=== PATIENT | female | born 1955 | race Caucasian/White ===

== ENCOUNTER 2020-03-11 09:46 | Outpatient (CLI) | payer BC, SELFPAY ==
--- NOTE | ~2020-03-11 | MM_ITS ---
EXAMINATION: MM screening [facility] BI w [facility] HISTORY: Screening mammogram TECHNIQUE: Craniocaudal and mediolateral oblique 3-D tomosynthesis images were obtained and synthetic 2-D images were generated. CAD analysis was submitted and interpreted. COMPARISON: 11/15/2018, 10/13/2017, 10/08/2016 BREAST PARENCHYMAL COMPOSITION: There are scattered areas of fibroglandular density. FINDINGS: There is no evidence of suspicious mass, calcification, or architectural distortion to sugg est malignancy in either breast. There has been no suspicious interval change. IMPRESSION: 1. No mammographic evidence of malignancy. 2. Recommend routine screening mammography in one year. BI-RADS Category 1: Negative Reviewed, dictated and finalized at location A.
== END 2020-03-11 09:47 | disposition home or self-care (01) ==
LOC: ANHIMG 09:49
PROVIDERS: PCP Internal Medicine; Visit Provider Nurse Practitioner
DX: Z12.31 Encounter for screening mammogram for malignant neoplasm of breast (principal)
CPT/HCPCS: 77063; 77067

== ENCOUNTER → 2020-12-05 13:14 | Outpatient (CLI) | payer BC, SELFPAY ==
--- NOTE | ~2020-12-05 | US_ITS ---
EXAMINATION: US thyroid DATE: 12/05/2020 13:36 INDICATION: Disorder of thyroid. TECHNIQUE: Multiple ultrasound images of the thyroid were obtained. COMPARISON: None. FINDINGS: The right thyroid lobe measures 4.5 x 1.8 x 1.4 cm. The left thyroid lobe measures 5.4 x 1.7 x 1.3 c m. In the right thyroid lobe, there is an 8 mm solid, hypoechoic, thfys-jbiq-ctid nodule with ill-de fined margin without echogenic foci (TI-RADS TR4). In the left thyroid lobe, there is a 2.3 cm solid, hypoechoic, ugiog-sezx-zzaj nodule with ill-defined margin without echogenic foci (TR4). IMPRESSION: 1. Thyroid nodules. Ultrasound-guided fine-needle aspiration of the 2.3 cm left thyroid nodule is rec ommended. Reviewed, dictated and finalized at location A. IMPRESSION: 1. Thyroid nodules. Ultrasound-guided fine-needle aspiration of the 2.3 cm left thyroid nodule is recommended.
== END ==
PROVIDERS: Visit Provider Nurse Practitioner
DX: E07.9 Disorder of thyroid, unspecified (principal)
CPT/HCPCS: 76536

== ENCOUNTER 2021-03-18 10:31 | Outpatient (CLI) | payer BC, SELFPAY ==
--- NOTE | ~2021-03-18 | MM_ITS ---
EXAMINATION: MM screening [facility] BI w [facility] HISTORY: Screening TECHNIQUE: Craniocaudal and mediolateral oblique 3-D tomosynthesis images were obtained and synthetic 2-D images were generated. CAD analysis was submitted and interpreted. COMPARISON: Comparison to multiple prior studies sequentially, with oldest reviewed study dated 05/31. BREAST PARENCHYMAL COMPOSITION: There are scattered areas of fibroglandular density. FINDINGS: There is no evidence of suspicious mass, calcification, or architectural distortion to sugg est malignancy in either breast. There has been no suspicious interval change. IMPRESSION: 1. No mammographic evidence of malignancy. 2. Recommend routine screening mammography in one year. BI-RADS Category 1: Negative Reviewed, dictated and finalized at location A.
== END 2021-03-18 10:32 | disposition home or self-care (01) ==
LOC: ANHIMG 10:34
PROVIDERS: Visit Provider Nurse Practitioner
DX: Z12.31 Encounter for screening mammogram for malignant neoplasm of breast (principal)
CPT/HCPCS: 77063; 77067

== ENCOUNTER 2022-04-23 09:27 | Outpatient (CLI) | payer MEDICARE, SELFPAY ==
--- NOTE | ~2022-04-23 | MM_ITS ---
EXAMINATION: MM screening [facility] w [facility] HISTORY: Screening TECHNIQUE: Craniocaudal and mediolateral oblique 3-D tomosynthesis images were obtained and synthetic 2-D images were generated. CAD analysis was submitted and interpreted. COMPARISON: Comparison to multiple prior studies sequentially, with oldest reviewed study dated 09/20. BREAST PARENCHYMAL COMPOSITION: The breasts are heterogeneously dense, which may obscure small masses . FINDINGS: There is no evidence of suspicious mass, calcification, or architectural distortion to sugg est malignancy in either breast. There has been no suspicious interval change. IMPRESSION: 1. No mammographic evidence of malignancy. 2. Recommend routine screening mammography in one year. BI-RADS Category 1: Negative Reviewed, dictated and finalized at location A.
== END 2022-04-23 09:28 | disposition home or self-care (01) ==
PROVIDERS: PCP Otolaryngology; Visit Provider Nurse Practitioner
DX: Z12.31 Encounter for screening mammogram for malignant neoplasm of breast (principal)
CPT/HCPCS: 77063; 77067

== ENCOUNTER 2023-05-10 01:55 | Day surgery (SDC) | payer MEDICARE, BC, SELFPAY ==
[2023-04-28 14:38] VITALS: BMI 29.4
--- NOTE | 2023-05-06 20:17 | PM.HPGS ---
History of Present Illness History of Present Illness Consent: Risks, benefits, and alternatives have been discussed and questions answered. Patient agrees to proceed with procedure. Chief complaint: GERD, hx colon polyps Narrative: Ana Aguilar is a 68 year old female with relux symptoms and history of polyps Who is due for colonoscopy. Her last colonoscopy was 5 years ago. she had a polyp removed with her 1st colonoscopy about 13 years ago. Review of Systems Review of Systems: All systems reviewed & are unremarkable except as noted in HPI and below PMFSH Past Medical History Medical History Atrial fibrillation Diverticulosis GERD (gastroesophageal reflux disease) Open fracture of left lower leg Surgical History Surgical History History of right hip replacement Family History Family History Father Heart disease Mother Hypertension Sibling Heart disease Other Thyroid disorder Grandparent Malignant neoplasm of prostate Diabetes mellitus Social History Social History Smoking status: Never smoker Alcohol intake: current Substance use: never Substance use type: does not use Lack of Transportation: No Lack of Food: Never True Current Housing: I Have Housing Concerned About Future Housing: No Difficulty Paying Gas/Electric Bills: No Difficulty Paying for Meds: No Currently Unemployed: No Education: High School Diploma/GED Difficulty w/ Childcare or Family Care: No Living arrangements: with family Spiritual care concerns: No Meds Home Medications and Allergies Home Medications Medication Instructions Recorded Confirmed Type cholecalciferol (vitamin D3) 50 50 mcg PO DAILY 03/19/22 04/28/23 History mcg (2,000 unit) capsule hydroxychloroquine 200 mg tablet 400 mg PO HS 03/19/22 04/28/23 History multivitamin 1 tablet PO DAILY 03/19/22 04/28/23 History levocetirizine 5 mg tablet (Xyzal) 5 mg PO DAILY PRN Allergy Symptoms 12/10/22 04/28/23 History fluticasone propionate 50 1 - 2 spray intranasal BID #16 mL 04/08/23 04/28/23 Rx mcg/actuation nasal spray,suspension (Flonase Allergy Relief) rivaroxaban 20 mg tablet (Xarelto) 20 mg PO DAILY 04/08/23 04/28/23 History azelastine 137 mcg (0.1 %) nasal 1 spray intranasal Q12H PRN 04/28/23 04/28/23 History spray aerosol ALLEGIES Allergies Allergy/AdvReac Type Severity Reaction Status Date / Time clindamycin AdvReac Intermediate NAUSEA Verified 05/10/23 08:05 metronidazole AdvReac Intermediate NAUSEA Verified 05/10/23 08:05 Exam Const: General: alert Orientation/consciousness: patient oriented x3 Resp: Auscultation: clear to auscultation bilaterally Cardio: Rhythm: regular rhythm GI: GI Palp: Yes Soft to palpation and No Tenderness to palpation present (GI) Neuro: General: patient oriented x3 Assessment and Plan Assessment and plan (1) GERD (gastroesophageal reflux disease): Code(s): K21.9 - Gastro-esophageal reflux disease without esophagitis Status: Acute Assessment and Plan: EGD with possible biopsy or dilatation or cautery. (2) Colon cancer screening: Code(s): Z12.11 - Encounter for screening for malignant neoplasm of colon Status: Acute Assessment and Plan: Colonoscopy with possible biopsy or polypectomy or cautery or injection of substances.
--- NOTE | 2023-05-10 08:00 | WPDANESEPPF ---
Anes - Initial Pre Proc Eval Procedure: Operation Date: 05/10/23 09:15 Proposed Procedures p Esophagogastroduodenoscopy & Colonoscopy - Med Pate MD Date/Time: 05/10/23 08:00 Surgeon: Med Pate MD Pre Op Diagnosis: GERD, hx colon polyps Patient Data Age: 68 Gender: F Height: 1.69 m Weight: 84 kg Allergies Allergy/AdvReac Type Severity Reaction Status Date / Time clindamycin AdvReac Intermediate NAUSEA Verified 05/10/23 08:05 metronidazole AdvReac Intermediate NAUSEA Verified 05/10/23 08:05 Home Medications Medication Instructions Recorded Confirmed Type cholecalciferol (vitamin D3) 50 50 mcg PO DAILY 03/19/22 04/28/23 History mcg (2,000 unit) capsule hydroxychloroquine 200 mg tablet 400 mg PO HS 03/19/22 04/28/23 History multivitamin 1 tablet PO DAILY 03/19/22 04/28/23 History levocetirizine 5 mg tablet (Xyzal) 5 mg PO DAILY PRN Allergy Symptoms 12/10/22 04/28/23 History fluticasone propionate 50 1 - 2 spray intranasal BID #16 mL 04/08/23 04/28/23 Rx mcg/actuation nasal spray,suspension (Flonase Allergy Relief) rivaroxaban 20 mg tablet (Xarelto) 20 mg PO DAILY 04/08/23 04/28/23 History azelastine 137 mcg (0.1 %) nasal 1 spray intranasal Q12H PRN 04/28/23 04/28/23 History spray aerosol ALLEGIES Patient hx anesthesia problems: none Family hx anesthesia problems: none Results Review: All pre-operative results and documents have been reviewed as part of the pre-operative evaluation. [facility] Past Medical History Medical History (Updated 05/10/23 @ 08:01 by Nathan Sandoval DO) Atrial fibrillation Diverticulosis GERD (gastroesophageal reflux disease) Open fracture of left lower leg Surgical History Surgical History History of right hip replacement Family History Family History Father Heart disease Mother Hypertension Sibling Heart disease Other Thyroid disorder Grandparent Malignant neoplasm of prostate Diabetes mellitus Social History Social History (Updated 04/08/23 @ 13:16 by Ada Montano CMA) Smoking status: Never smoker Alcohol intake: current Substance use: never Substance use type: does not use Lack of Transportation: No Lack of Food: Never True Current Housing: I Have Housing Concerned About Future Housing: No Difficulty Paying Gas/Electric Bills: No Difficulty Paying for Meds: No Currently Unemployed: No Education: High School Diploma/GED Difficulty w/ Childcare or Family Care: No Living arrangements: with family Spiritual care concerns: No Anes - Eval Final PreProcedure Day of Procedure 05/10/23 08:00 Patient weight: overweight Heart: regular rate and rhythm Lungs: clear to auscultation Airway: Mallampati scale class II Neurological: alert and oriented Last oral intake: >/= 8 hours ASA classification: III Emergent: no Anesthetic plan: proceed Anesthesia type and monitoring: general GIVS and standard monitoring Results Review: All pre-operative results and documents have been reviewed as part of the pre-operative evaluation. Informed Consent: The patient's anesthetic plan and its attendant risks and benefits were discussed with the patient/family/POA. Questions were solicited and answers provided to the satisfaction of the patient/family/POA.
[2023-05-10 08:08] VITALS: BP 129/73; PULSE 71; RESP 18; TEMP 36.5; O2SAT 100
[2023-05-10] MEDS: LACTATED RINGERS 1,000 ML 150 ML IV CONT (08:19)
--- NOTE | 2023-05-10 09:30 | SUR.OPER ---
EGD: COLON: Start 924
[2023-05-10 09:39] VITALS: BP 111/69; PULSE 68; RESP 17; O2SAT 100
[2023-05-10 09:49] VITALS: BP 118/78; PULSE 67; RESP 15; O2SAT 100
[2023-05-10 09:59] VITALS: BP 127/76; PULSE 64; RESP 14; O2SAT 100
== END 2023-05-10 10:05 | disposition home or self-care (01) ==
PROVIDERS: PCP Internal Medicine; Visit Provider Internal Medicine Gastroenterology
PROC: 0DJ08ZZ Inspection of Upper Intestinal Tract, Via Natural or Artificial Opening Endoscopic (ICD-10-PCS; CPT 43235; principal; 2023-05-10 09:15)
DX: Z12.11 Encounter for screening for malignant neoplasm of colon (principal); K57.30 Diverticulosis of large intestine without perforation or abscess without bleeding; Z86.010 Personal history of colon polyps; K21.00 Gastro-esophageal reflux disease with esophagitis, without bleeding; I48.91 Unspecified atrial fibrillation; Z79.82 Long term (current) use of aspirin
CPT/HCPCS: 43239; G0105; 87081; 88305; J2704; J7120

== ENCOUNTER 2023-06-10 15:29 | Outpatient (CLI) | payer MEDICARE, BC, SELFPAY ==
--- NOTE | ~2023-06-10 | MM_ITS ---
EXAMINATION: MM screening [facility] HISTORY: Screening mammogram TECHNIQUE: Craniocaudal and mediolateral oblique 3-D tomosynthesis images were obtained and synthetic 2-D images were generated. Bilateral rotated lateral CC views. CAD analysis was submitted and interp reted. COMPARISON: 04/23/2022, 03/18/2021, 03/11/2020 bilateral screening mammogram examinations BREAST PARENCHYMAL COMPOSITION: There are scattered areas of fibroglandular density. FINDINGS: There is no evidence of suspicious mass, calcification, or architectural distortion to sugg est malignancy in either breast. There has been no suspicious interval change. IMPRESSION: 1. No mammographic evidence of malignancy. 2. Recommend routine screening mammography in one year. BI-RADS Category 1: Negative Reviewed, dictated and finalized at location A.
== END 2023-06-10 15:30 | disposition home or self-care (01) ==
PROVIDERS: PCP Internal Medicine; Visit Provider Nurse Practitioner
DX: Z12.31 Encounter for screening mammogram for malignant neoplasm of breast (principal)
CPT/HCPCS: 77063; 77067

== ENCOUNTER 2025-08-29 08:35 | Outpatient (CLI) | payer MEDICARE, BC, SELFPAY ==
--- OUTSIDE RECORDS SUMMARY | 2025-08-28 11:40 | XMS_ITS | Encounter Summary ---
Author Organization [facility] Address [address] [place] [address] Phone Care Team Providers Care Curbstone Setter Name Role Phone Joe Alaniz MD Primary Care Provider Troy Bradford MD Unavailable [phone] Encounter Details Date Type Department Care Team (Late st Contact Info) Description 08/28/2025 11:40 AM KETTLE GIRL Office Visit [facility] Medicine Rheumatology [address] [facility] Medical Office Building 2 [address] [place] [address] Soraya Mayers MD [address] [place] [address] 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 (Primary Dx) Social History Tobacco Use Types Packs/Day Years Used Date Smoking Tobacco: Former Cigarettes 0.1 37 1 981 - 2017 Passive Smoke Exposure: Never Smokeless Tobacco: Never Tobacco Cessation:Counseling Given: Not Answered Alcohol Use Standard Drinks/Week Comments Yes 1 (1 standard drink = 0.6 oz pur e alcohol) [facility] Utilities Answer Date Recorded In the past 12 months has [employer] gas, oil, or water company threatened to shut off services in your home? No 12/07/2024 Social Connection and Isolation Panel Answer Date Recorded In a typical week, how many times do you talk on the phone with family, friends, or neighbors? More than three times a week 12/07/2024 How often do you get togethe r with friends or relatives? More than three times a week 12/07/2024 How often do you attend chur ch or mosque services? More than 4 times per year 12/07/2024 Do you belong to any clubs o r organizations such as anabaptist groups, unions, fraternal or athletic groups, or school groups? Yes 12/07/2024 How often do you attend meet ings of the clubs or organizations you belong to? More than 4 times per year 12/07/2024 Are you , , di vorced, , never , or living with a partner? 12/07/2024 Overall Financial Resource Strain (CARDIA) Answe r Date Recorded How hard is it for you to pa y for the very basics like food, housing, medical care, and heating? Not hard at all 12/07/2024 PHQ-2 Answer Date Recorded Patient Health Questionnaire-2 Score 0 12/07/2024 [facility] - Occupational Stress Questionnaire Answer Date Recorded Do you feel stress - tense, restless, nervous, or anxious, or unable to sleep at night because your mind is troubled all the time - these days? Only a little 12/07/2024 Exercise Vital Sign Answer Date Recorde d On average, how many days pe r week do you engage in moderate to strenuous exercise (like a brisk walk)? 2 days 12/07/2024 On average, how many minutes do you engage in exercise at this level? 30 min 12/07/2024 Hunger Vital Sign Answer Date Recorded Within the past 12 months, y ou worried that your food would run out before you got the money to buy more. Never true 12/08/19 25 Within the past 12 months, t he food you bought just didn't last and you didn't have money to get more. Never true 12/07/2024 PRAPARE - Transportation Answer Date Re corded In the past 12 months, has l ack of transportation kept you from medical appointments or from getting medications? No 11/28 In the past 12 months, has l ack of transportation kept you from meetings, work, or from getting things needed for daily living? No 12/07/2024 Housing Stability Vital Sign Answer Sampson e Recorded In the last 12 months, was t here a time when you were not able to pay the mortgage or rent on time? No 12/07/2024 Number of Times Moved in the Last Year Not on fi le 12/07/2024 Homeless in the Last Year Not on file 2024 AUDIT-C Answer Date Recorded Frequency of Alcohol Consumption Not on file 08/28/2025 Average Number of Drinks Not on file 025 Q3: How often do you have si x or more drinks on one occasion? Less than monthly 08/28/2025 Personal Safety Answer Date Recorded Have you ever been in or are you currently in a harmful physical or emotional relationship or is someone making you feel afraid or unsafe? Denies 07/02/2024 Comments No Sex and Gender Information Value Date Recorded Sex Assigned at Not on file Legal Sex Female 10:59 AM KETTLE GIRL Gender Identity Female 07/30/2021 6:11 AM KETTLE GIRL Sexual Orientation Straight 09/05/2021 9: 28 AM KETTLE GIRL Occupation Industry Job Start Date Job End Date RETIRED Not on file Not on file Not on file documented as of this encounter Last Filed Vital Signs Vital Sign Reading Time Taken Comments Blood Pressure 114/68 08/28/2025 11:39 AM KETTLE GIRL Pulse 60 08/28/2025 11:39 AM KETTLE GIRL Temperature 36.4 C (97.6 F) 08/28/2025 11:39 AM KETTLE GIRL Respiratory Rate - - Oxygen Saturation 91% 08/28/2025 11:39 AM KETTLE GIRL Inhaled Oxygen Concentration - - Weight 84.8 kg (187 lb) 08/28/2025 11:39 AM KETTLE GIRL Height 167.6 cm (5' 6) 08/28/2025 11:39 AM KETTLE GIRL Body Mass Index 30.18 08/28/2025 11:39 AM KETTLE GIRL documented in this encounter Functional Status * BP Location Answer Date of Assessment Author Left arm 08/28/2025 11:39 AM KETTLE GIRL Maribel Fletcher CMA * Alcohol Use Question Answer Date of Assessment Author Q3: How often do you have six or more drinks on one occasion? Less than monthly 08/28/2025 11:39 AM KETTLE GIRL Maribel Fletcher CMA * BP Location Answer Date of Assessment Author Left arm 08/28/2025 11:39 AM KETTLE GIRL Maribel Fletcher CMA documented as of this encounter Progress Notes * Soraya Mayers MD - 08/28/2025 11:40 AM CST PATIENT NAME:Ana Aguilar : 1955 Todays Date: 08/28/2025 HISTORY OF PRESENT ILLNESS: ia a 70 y.o. female with a diagnosis of lupus/MCTD and inflammatory arthritis who presents to establish care. She previously saw my nurse practitioner Enedina Becerra. Prior to that she has seen other providers in the divisions specifically Dr. Pena and Dr. Milan have seen her Serologically she seems to be more MCTD she has a positive GAYATHRI, positive double- stranded DNA positive 52 KD Ro, positive U1 STRIPE MARKER, positive Caldwell and positive SSA antibody. Clinically she primarily has inflammatory arthritis, has had a rash consistent with lupus and has Raynaud's without digital ulceration She is just here for a routine visit she is only on hydroxychloroquine at this point which she has been taking for about 8 years at 400 mg daily. This seems to be controlling her symptoms fairly well Previously she has tried other medicines including methotrexate, Orencia infusions for the inflammatory arthritis and MMF for unclear reasons She does have some history of thigh pain, previously aldolase was elevated but then normalized she recently started a statin medication as well ALLERGIES: Allergies Allergen Reactions Metronidazole Nausea & Vomiting Clindamycin Nausea only CURRENT MEDICATION: Current Outpatient Medications: atorvastatin (LIPITOR) 20 mg tablet, TAKE 1 TABLET BY MOUTH EVERY DAY, Disp: 90 tablet, Rfl: 3 cholecalciferol (VITAMIN D-3) 2,000 unit capsule, Take 1 capsule (2,000 Units total) by mouth nightly, Disp: , Rfl: hydroxychloroquine (PLAQUENIL) 200 mg tablet, Take 2 tablets (400 mg total) by mouth daily, Disp: 60 tablet, Rfl: 11 levocetirizine (XYZAL) 5 mg tablet, Take 1 tablet (5 mg total) by mouth as needed, Disp: , Rfl: metoprolol XL (TOPROL-XL) 25 mg extended release tablet, TAKE 1 TABLET (25 MG TOTAL) BY MOUTH DAILY., Disp: 90 tablet, Rfl: 3 multivit-min/iron/folic/lutein (CENTRUM SILVER WOMEN ORAL), Take by mouth Calcium 300 mg and vitamin D 1000 international units Total vitamin D 3000 international units daily, Disp: , Rfl: pantoprazole (PROTONIX) 20 mg EC tablet, Take 1 tablet (20 mg total) by mouth daily, Disp: 90 tablet, Rfl: 3 Xarelto 20 mg tablet, Take 1 tablet (20 mg total) by mouth daily with dinner, Disp: 90 tablet, Rfl:3 Current Facility-Administered Medications: perflutren lipid (DEFINITY) 1.5 mL in sodium chloride 0.9% 10 mL syringe, 1-10 mL, intravenous, Once in imaging, Josue Bullock MD PHYSICAL EXAM: Vitals BP 114/68 (BP Location: Left arm, Patient Position: Sitting) Pulse 60 Temp 36.4 ??C (97.6 ??F) Ht 167.6 cm (5' 6) Wt 84.8 kg (187 lb) SpO2 91% BMI 30.18 kg/m?? Physical Exam General examination is unremarkable There is no evidence of active synovitis or tenderness other than the 2nd MCP bilaterally She does not have any skin rashes today She does not have any digital ulceration today There is no evidence of parotid gland hypertrophy or palpable cervical lymph nodes RS is clear to auscultation LABORATORY DATA: Lab Results Component Value Date WBC 5.65 04/20/2025 HGB 13.1 04/20/2025 HCT 40.3 04/20/2025 MCV 95.0 04/20/2025 LABPLAT 177 04/20/2025 Lab Results Component Value Date AST 29 04/20/2025 ALT 27 04/20/2025 CREATININE 0.83 04/20/2025 Lab Results Component Value Date SEDRATE 24 04/20/2025 Lab Results Component Value Date CRP <3.0 04/20/2025 Lab Results Component Value Date C3 146 04/20/2025 C3 136 12/07/2024 C3 136.0 08/07/2024 Lab Results Component Value Date C4 19 04/20/2025 C4 21 12/07/2024 C4 19.0 08/07/2024 Lab Results Component Value Date DSDNAQUAN 40.0 (H) 04/20/2025 DSDNAQUAN 46.0 (H) 12/07/2024 DSDNAQUAN 68.0 (H) 08/07/2024 Lab Results Component Value Date PROTCREAT 96.4 12/07/2024 PROTCREAT 123 02/09/2024 PROTCREAT 0.123 02/09/2024 Lab Results Component Value Date JO1AB <20 04/20/2025 JO1AB <0.2 01/18/2023 PL7 Negative 04/20/2025 PL12 Negative 04/20/2025 EJ Negative 04/20/2025 OJ Negative 04/20/2025 SRP Negative 04/20/2025 MI2 Negative 04/20/2025 PMSCL <20 04/20/2025 FIBRILLARIN Negative 04/20/2025 [id number] Negative 04/20/2025 W3XCUCM 155 (H) 04/20/2025 KU Negative 04/20/2025 QBS3OFANG <20 04/20/2025 MDA5 <20 04/20/2025 NXP2 <20 04/20/2025 [id number] 48 (H) 04/20/2025 No results found for: RF No results found for: CCPAB Lab Results Component Value Date CK 76 04/20/2025 CK 121 12/07/2024 Lab Results Component Value Date ALDOLASE 5.7 04/20/2025 ALDOLASE 16.3 (H) 03/05/2025 ALDOLASE 13.9 (H) 12/07/2024 IMAGING: No results found for this or any previous visit. PATHOLOGY: * Cannot find OR log * ASSESSMENT AND PLAN: 1. 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 (Primary) - CBC with auto differential; Future - Comprehensive metabolic panel; Future - C3 complement; Future - CRP (acute phase); Future - Anti-double stranded DNA abs; Future - Erythrocyte sedimentation rate; Future - Urinalysis reflex to microscopic and culture Urine; Future - C4 complement; Future - Protein / creatinine ratio, urine, random; Future - Creatine kinase (CK), total; Future - Aldolase; Future 70 y.o. with lupus/MCTD manifested with inflammatory arthritis, Raynaud's and skin rash. She has multiple abnormal serologies including GAYATHRI, double-stranded DNA, Caldwell antibodies, U1 STRIPE MARKER, 52 KD Ro and SSA Overall seems to be stable on hydroxychloroquine 400 mg a day. Her last eye test was in his vision and I will try and get the records over. At her next office visit in 6 months we will try and reducehydroxychloroquine dose as she has been taking hydroxychloroquine for 8 years She has some anterior thigh pain which I think is probably not related to the autoimmune disease. She was recently started on a statin and I advised her to discuss with Cardiology as to the pros and cons of statin medications with muscle pain. Her LDL seems to be very well controlled and she does not have any prior history of atherosclerotic episodes She is on minimal medication at this point I will also keep it on a muscle enzymes and if they are elevated again we will work her up for myositis DISPOSITION: The patient will return follow up in Soraya Mayers MD Portions of the record may have been created with voice recognition software. Occasional wrong-word or ???[id number]??? substitutions may have occurred due to the inherent limitations of voice recognition software. Read the chart carefully and recognize, using context, where substitutions have occurred.?? LE GIRL documented in this encounter Plan of Treatment Pending Results Name Type Priority Associated Diagnoses Date /Time Anti-double stranded DNA abs Lab Routine 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 08/28/2025 12:35 PM KETTLE GIRL Scheduled Orders Name Type Priority Associated Diagnoses Orde r Schedule Anti-double stranded DNA abs Lab Routine 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 Expected: 08/28/2025, Expires: 08/28/2026 documented as of this encounter Results * Protein / creatinine ratio, urine, random (08/28/2025 12:45 PM KETTLE GIRL) Protein, ur, quant <6.0 mg/dL Comment: Interpretive Data No reference range established. Current interpretive data was last revised 2019. Testing performed by: [facility], [address], [place] [address] Creatinine Ur 40.1 mg/dL RAN [facility] Comment: Interpretive Data No reference range established. Current interpretive data was last revised 2019. Testing performed by: [facility], [address], [place] [address] Protein/creatinin e ratio <149.6 0.0 - 180.0 mg/g CR RAN BJWCH Comment:Testing performed by : [facility], [address], [place] [address] Urine 08/28/2025 12:4 5 PM KETTLE GIRL 08/28/2025 1:24 PM KETTLE GIRL Soraya Mayers MD LAB URINE ORDERABLES Final Result [facility] [address] Department [place] [address] * Urinalysis reflex to microscopic and culture Urine (08/28/2025 12:45 PM KETTLE GIRL) Color, ur Straw Yellow Comment:Testing performed by : [facility], [address], [place] [address] Clarity, ur Clear Clear CERTITO BJWCH Comment:Testing performed by : [facility], [address], [place] [address] Specific gravity, ur 1.011 1.003 - 1.030 CERTITO BJWCH Comment:Testing performed by : [facility], [address], [place] [address] pH, urine 6.5 RAN BJWCH Comment: Interpretive Data U rine pH is affected by diet, medications, systemic acid-base disturbances, and renal tubular function. pH may affect urinary stone formation. For example, urine pH below 6.0 may help reduce the tendency for calcium phosphate stones and pH greater than 6.0 may reduce the tendency for uric acid stone formation. Source: [employer] Current Interpretive Data was last revised on 2017 Testing performed by: [facility], [address], [place] [address] Protein, ur ql Negative Negative CERNER BJWCH Comment:Testing performed by : [facility], [address], [place] [address] Glucose, ur ql Negative Negative CERNER BJWCH Comment:Testing performed by : [facility], [address], [place] [address] Ketones, ur Negative Negative CERNER BJWCH Comment:Testing performed by : [facility], [address], [place] [address] Bilirubin, ur Negative Negative CERNER BJWCH Comment:Testing performed by : [facility], [address], [place] [address] Blood, ur Negative Negative CERNER BJWCH Comment:Testing performed by : [facility], [address], [place] [address] Urobilinogen, ur <2.0 <2.0 mg/dL CERNER BJWCH Comment:Testing performed by : [facility], [address], [place] [address] Nitrite, ur Negative Negative CERNER BJWCH Comment:Testing performed by : [facility], [address], [place] [address] Leukocyte esterase, ur Negative Negative CERNER BJWCH Comment:Testing performed by : [facility], [address], [place] [address] UA reflex comment Reflex conditions for microscopic UA and culture not met. HARJITNER BJWCH Comment:Testing performed by : [facility], [address], [place] [address] Urine 08/28/2025 12:4 5 PM KETTLE GIRL 08/28/2025 1:24 PM KETTLE GIRL Soraya Mayers MD LAB MICROBIOLOGY - GENERAL ORDERABLES Final Result [facility] [address] [place] [address] * Aldolase (08/28/2025 12:35 PM KETTLE GIRL) Aldolase 6.4 0.1 - 8.0 Units/L Comment:Testing performed by : [facility], [address] [facility] [place] [address] Blood 08/28/2025 12:3 5 PM KETTLE GIRL 08/28/2025 6:16 PM KETTLE GIRL Soraya Mayers MD LAB BLOOD ORDERABLES Final Result Performing Organization Address City/[facility]/ZIP Co de Phone Number RAN HERRERACH [address] [facility] [place] [address] * Creatine kinase (CK), total (08/28/2025 12:35 PM KETTLE GIRL) Pathologist [facility] CK 125 30 - 200 Units/L Comment:Testing performed by : [facility], [address] [place] [id number] Blood 08/28/2025 12:3 5 PM KETTLE GIRL 08/28/2025 1:00 PM KETTLE GIRL Soraya Mayers MD LAB BLOOD ORDERABLES Final Result Performing Organization Address [facility] Co de Phone Number RAN HERRERAWCH [phone] [place] [address] * C4 complement (08/28/2025 12:35 PM KETTLE GIRL) Pathologist [facility] Complement C4 20 10 - 40 mg/dL Comment:Testing performed by : [facility], [facility], [place]., [address] Blood 08/28/2025 12:3 5 PM KETTLE GIRL 08/28/2025 3:25 PM KETTLE GIRL Soraya Mayers MD LAB BLOOD ORDERABLES Final Result Performing Organization Address City/[facility] Co de Phone Number RNA B[facility] [address] [place] [address] * Erythrocyte sedimentation rate (08/28/2025 12:35 PM KETTLE GIRL) Pathologist [facility] Erythrocyte sedimentation rate 24 1 - 30 mm/hr Comment:Testing performed by : [facility], [address] [facility] [place] [id number] Blood 08/28/2025 12:3 5 PM KETTLE GIRL 08/28/2025 1:24 PM KETTLE GIRL Soraya Mayers MD LAB BLOOD ORDERABLES Final Result Performing Organization Address [facility]/ZIP Co de Phone Number [facility] [address] [facility] [place] [address] * CRP (acute phase) (08/28/2025 12:35 PM KETTLE GIRL) CRP <3.0 <=10.0 mg/L Comment:Testing performed by : [facility], [address] [facility], [place] [address] Blood 08/28/2025 12:3 5 PM KETTLE GIRL 08/28/2025 1:00 PM KETTLE GIRL Soraya Mayers MD LAB BLOOD ORDERABLES Final Result Performing Organization Address [facility] Co de Phone Number [facility] [address] [facility] [place] [place] [address] * C3 complement (08/28/2025 12:35 PM KETTLE GIRL) Pathologist [facility] Complement C3 146 90 - 180 mg/dL Comment:Testing performed by : [facility], [facility], [place]., [address] Blood 08/28/2025 12:3 5 PM KETTLE GIRL 08/28/2025 3:25 PM KETTLE GIRL Soraya Mayers MD LAB BLOOD ORDERABLES Final Result Performing Organization Address [facility] Co de Phone Number RAN HERRERACH [address] [facility] [place] [place] [address] * Comprehensive metabolic panel (08/28/2025 12:35 PM KETTLE GIRL) Pathologist [facility] Sodium 141 135 - 145 mmol/L Comment:Testing performed by : [facility], [address] [facility], [place] [address] Potassium, pl 4.4 3.3 - 4.9 mmol/L RAN TARANGO Comment:Testing performed by : [facility], [address], [place] [address] Chloride 105 97 - 110 mmol/L CERNER BJWCH Comment:Testing performed by : [facility], [address], [place] [address] CO2 27 22 - 32 mmol/L CERNER B[facility] Comment:Testing performed by : [facility], [address], [place] [address] Anion gap 9 2 - 15 mmol/L CERNER BJWCH Comment:Testing performed by : [facility], [address], [place] [address] BUN 15 6 - 25 mg/dL CERNER BJWCH Comment:Testing performed by : [facility], [address], [place] [address] Creatinine 0.85 0.60 - 1.10 mg/dL CERNER BJWCH Comment:Testing performed by : [facility], [address], [place] [address] Glucose 84 70 - 199 mg/dL CERNER BJWCH Comment: Interpretive Data Fasting glucose >/= 126 mg/dl is diagnostic for diabetes. Fasting is defined as no caloric intake for at least 8 hours. Fasting glucose between 100 mg/dl to 125 mg/dl is diagnostic of prediabetes. In a patient with classic symptoms of hyperglycemia or hyperglycemic crisis, a random glucose >/= 200 mg/dl is diagnostic for diabetes. In the absence of unequivocal hyperglycemia, results should be confirmed by repeat testing. The classification and Diagnosis of Diabetes Diabetes Care 202; 46: S19-S40. Testing performed by: [facility], [address], [place] [address] Calcium 9.8 8.5 - 10.3 mg/dL CERNER BJWCH Comment:Testing performed by : [facility], [address], [place] [address] Bilirubin, total 0.6 0.1 - 1.2 mg/dL CERNER BJWCH Comment:Testing performed by : [facility], [address], [place] [address] Protein, pl 7.2 6.5 - 8.5 g/dL CERNER BJWCH Comment:Testing performed by : [facility], [address], [place] [address] Albumin 4.2 3.5 - 5.0 g/dL CERNER BJWCH Comment:Testing performed by : [facility], [address], [place] [address] Alk phos 122 40 - 130 Units/L CERNER BJWCH Comment:Testing performed by : [facility], [address], [place] [address] ALT 36 7 - 45 Units/L CERNER [facility] Comment:Testing performed by : [facility], [address], [place] [address] AST 35 10 - 45 Units/L CERNER BJWCH Comment:Testing performed by : [facility], [address], [place] [address] Blood 08/28/2025 12:3 5 PM KETTLE GIRL 08/28/2025 1:00 PM KETTLE GIRL us Soraya Mayers MD LAB BLOOD ORDERABLES Final Result [facility] [address] [place] [address] * CBC with auto differential (08/28/2025 12:35 PM KETTLE GIRL) WBC 6.46 3.80 - 9.90 K/cumm Comment:Testing performed by : [facility], [facility], [address] [place] [address] Hgb 13.2 11.9 - 15.5 g/dL RAN BJWCH Comment:Testing performed by : [facility], [facility], [address] [place] [address] Hct 40.2 35.6 - 45.5 % RAN BJWCH Comment:Testing performed by : [facility], [facility], [address] [place] [address] Plt 224 150 - 400 K/cumm CERNER BJWCH Comment:Testing performed by : [facility], [facility], [address] [place] [address] MPV 10.3 9.1 - 12.3 fL CERNER BJWCH Comment:Testing performed by : [facility], [address] [place] [address] RBC 4.24 3.90 - 5.20 M/cumm CERNER BJWCH Comment:Testing performed by : [facility], [facility], [address] [place] [address] MCV 94.8 81.3 - 96.4 fL CERNER BJWCH Comment:Testing performed by : [place] [address], [address] [place] [address] MCH 31.1 27.1 - 33.3 pg CERNER BJWCH Comment:Testing performed by : [place] [address], [address] [place] [address] MCHC 32.8 32.3 - 35.7 g/dL CERNER BJWCH Comment:Testing performed by : [place] [address], [address] [place] [address] RDW CV 12.9 11.1 - 14.9 % CERTITO BJWCH Comment:Testing performed by : [place] [address], [address] [place] [address] RDW SD 44.5 35.7 - 48.1 fL CERNER BJWCH Comment:Testing performed by : [facility] 2, [address] [place] [address] ANC Prelim 3.44 1.50 - 6.50 K/cumm CERNER BJW[facility] Comment: Interpretive Data The rapid ANC is a preliminary automated count and may vary from the final ANC (Neut Abs) reported in the WBC differential that follows. Current interpretive data was last revised 2024. Testing performed by: [place] [address], [address] [place] [address] Blood 08/28/2025 12:3 5 PM KETTLE GIRL 08/28/2025 12:38 PM KETTLE GIRL Soraya Mayers MD LAB BLOOD ORDERABLES Final Result RAN BJWCH [address] [facility]. Department [place] [address] documented in this encounter Visit Diagnoses Diagnosis 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- Primary documented in this encounter Care Teams Curbstone Setter Relationship Specialty Start Date End Date Joe Alaniz MD [address] [facility] [address] [place] [address] PCP - General Internal Medicine 09/27/18 Troy Bradford MD [address] [place] [address] Consulting Physician Cardiology 11/10/24 documented as of this encounter
--- OUTSIDE RECORDS SUMMARY | 2025-08-28 13:15 | XMS_ITS | Encounter Summary ---
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 More than 4 times per year 12/07/2024 Do you belong to any clubs o r organizations such as sikhism groups, unions, fraternal or athletic groups, or [...] Recorded Patient Health Questionnaire-2 Score 0 12/07/2024 [facility] of Occupat ional Health - Occupational Stress Questionnaire Answer Date Recorded [...] on file Legal Sex Female 10:59 AM CONCHE OPERATOR Gender Identity Female 07/30/2021 6:11 AM CONCHE OPERATOR Sexual Orientation Straight 09/05/2021 9: 28 AM CONCHE OPERATOR Occupation Industry Job Start Date Job End Date RETIRED Not on file Not on file Not on file documented as of this encounter Plan of Treatment Pending Results Name Type Priority Associated Diagnoses Date /Time Anti-double stranded DNA abs Lab Routine 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 08/28/2025 12:35 PM CONCHE OPERATOR documented as of this encounter Procedures Procedure Name Priority Date/Time Associated Diagnosis Comments URINALYSIS AND REFLEX TO MICROSCOPIC AND CULTURE Routine 08/28/2025 12:45 PM CONCHE OPERATOR 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 PROTEIN / CREATININE RATIO, URINE, RANDOM Routine 08/28/2025 12:45 PM CONCHE OPERATOR 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 EGFR Routine 08/28/2025 12:35 PM CONCHE OPERATOR 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 DIFFERENTIAL AUTO Routine 08/28/2025 12: 35 PM CONCHE OPERATOR 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 C4 COMPLEMENT Routine 08/28/2025 12:35 PM CONCHE OPERATOR 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 CBC WITH AUTO DIFFERENTIAL Routine 08/28/2025 12:35 PM CONCHE OPERATOR 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 ALDOLASE Routine 08/28/2025 12:35 PM CONCHE OPERATOR 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 ERYTHROCYTE SEDIMENTATION RATE Routine 08/28/2025 12:35 PM CONCHE OPERATOR 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 C3 COMPLEMENT Routine 08/28/2025 12:35 PM CONCHE OPERATOR 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 CRP (ACUTE PHASE) Routine 08/28/2025 12: 35 PM CONCHE OPERATOR 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 CREATINE KINASE (CK), TOTAL Routine 08/28/2025 12:35 PM CONCHE OPERATOR 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 COMPREHENSIVE METABOLIC PANEL Routine 08/28/2025 12:35 PM CONCHE OPERATOR 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 documented in this encounter Results * Urinalysis reflex to microscopic and culture Urine (08/28/2025 12:45 PM CONCHE OPERATOR) Color, ur Straw Yellow Comment:Testing performed by : [facility], [address], [place] [address] Clarity, ur Clear Clear CERNER BJWCH Comment:Testing performed by : [facility], [address], [place] [address] Specific gravity, ur 1.011 1.003 - 1.030 CERNER BJWCH Comment:Testing performed by : [facility], [address], [place] [address] pH, urine 6.5 CERNER BJWCH Comment: Interpretive Data U rine pH is affected by diet, medications, systemic acid-base disturbances, and renal tubular function. pH may affect urinary stone formation. For example, urine pH below 6.0 may help reduce the tendency for calcium phosphate stones and pH greater than 6.0 may reduce the tendency for uric acid stone formation. Source: [employer] Current Interpretive Data was last revised on 2017 Testing performed by: [facility], [address], [place] [address] Protein, ur ql Negative Negative CERNER BJWCH Comment:Testing performed by : [facility], [address], [place] [address] Glucose, ur ql Negative Negative CERNER BJWCH Comment:Testing performed by : [facility], [address], [place] [address] Ketones, ur Negative Negative CERNER BJWCH Comment:Testing performed by : [facility], [address], [place] [address] Bilirubin, ur Negative Negative CERNER BJWCH Comment:Testing performed by : [facility], [address], [place] [address] Blood, ur Negative Negative CERNER BJWCH Comment:Testing performed by : [facility], [address], [place] [address] Urobilinogen, ur <2.0 <2.0 mg/dL CERNER BJWCH Comment:Testing performed by : [facility], [address], [place] [address] Nitrite, ur Negative Negative CERNER BJWCH Comment:Testing performed by : [facility], [address], [place] [address] Leukocyte esterase, ur Negative Negative CERNER BJWCH Comment:Testing performed by : [facility], [address], [place] [address] UA reflex comment Reflex conditions for microscopic UA and culture not met. CERNER BJWCH Comment:Testing performed by : [facility], [address], [place] [address] Urine 08/28/2025 12:4 5 PM CONCHE OPERATOR 08/28/2025 1:24 PM CONCHE OPERATOR Soraya Mayers MD LAB MICROBIOLOGY - GENERAL ORDERABLES Final Result RAN [facility] [address] Department [place] [address] * Protein / creatinine ratio, urine, random (08/28/2025 12:45 PM CONCHE OPERATOR) Protein, ur, quant <6.0 mg/dL Comment: Interpretive Data No reference range established. Current interpretive data was last revised 2019. Testing performed by: [facility], [address], [place] [address] Creatinine Ur 40.1 mg/dL RAN TARANGO Comment: Interpretive Data No reference range established. Current interpretive data was last revised 2019. Testing performed by: [facility], [address] [facility] [place] [address] Protein/creatinin e ratio <149.6 0.0 - 180.0 mg/g CR RAN TARANGO Comment:Testing performed by : [facility], [address] [place] [address] Urine 08/28/2025 12:4 5 PM CONCHE OPERATOR 08/28/2025 1:24 PM CONCHE OPERATOR us Soraya Mayers MD LAB URINE ORDERABLES Final Result [facility] [address] [facility] Department of Laboratories [place] [id number] * eGFR (08/28/2025 12:35 PM CONCHE OPERATOR) eGFR 74 >=60 mL/min/1. 73 m2 Comment: Interpretive Data Reference Interval Normal >/= 90 mL/min/1.73m2 Mildly decreased* 60 - 89 mL/min/1.73m2 Mildly to moderately decreased 45 - 59 mL/min/1.73m2 Moderately to severely decreased 30 - 44 mL/min/1.73m2 Severely decreased 15 - 29 mL/min/1.73m2 Kidney Failure < 15 mL/min/1.73m2 *Relative to young adult level Estimated glomerular filtration rate is determined by the 2020 CKD-EPI equation recommended by the National Kidney Foundation (A Unifying Approach to GFR Estimation: Recommendations of the NKF-ASK Task Force on Reassessing the Inclusion of Race in Diagnosing Kidney Disease, JASN 202). The CKD-EPI equation should not be used for patients with unstable renal function and has not been validated in children and those over 70. Current interpretive data was last reviewed 2021. Testing performed by: [facility], [address] [place] [address] Blood 08/28/2025 12:3 5 PM CONCHE OPERATOR 08/28/2025 1:00 PM CONCHE OPERATOR Soraya Mayers MD LAB BLOOD ORDERABLES Final Result RAN KHAN [address] Department [place] [address] * Differential, auto (08/28/2025 12:35 PM CONCHE OPERATOR) Neutrophil abs 3.44 1.50 - 6.50 K/cumm Comment:Testing performed by : [facility], [address] [place] [address] Imm gran abs 0.01 0.00 - 0.10 K/cumm CERNER BJWCH Comment:Testing performed by : [place] [address], [address] [place] [address] Lymphocyte abs 2.18 0.80 - 3.30 K/cumm CERNER BJWCH Comment:Testing performed by : [facility] 2, [address] [place] [address] Monocyte abs 0.61 0.20 - 0.80 K/cumm CERNER BJWCH Comment:Testing performed by : [facility] 2, [address] [place] [address] Eosinophil abs 0.18 0.00 - 0.50 K/cumm CERNER BJWCH Comment:Testing performed by : [facility] 2, [address] [place] [address] Basophil abs 0.04 0.00 - 0.10 K/cumm CERNER BJWCH Comment:Testing performed by : [facility], [address] [place] [address] Neutrophil pct 53.3 % CERNER BJWCH Comment: Interpretive Data Percent cell count reference ranges are not reported, since discordance with absolute values may lead to misinterpretation of CBC data. Current Interpretive Data was last revised on 2017. Testing performed by: [facility], [facility], [address] [place] [address] Imm gran pct 0.2 % CERNER BJWCH Comment: Interpretive Data Percent cell count reference ranges are not reported, since discordance with absolute values may lead to misinterpretation of CBC data. Current Interpretive Data was last revised on 2017. Testing performed by: [facility], [facility] 2, [address] [place] [address] Lymphocyte pct 33.7 % CERNER BJWCH Comment: Interpretive Data Percent cell count reference ranges are not reported, since discordance with absolute values may lead to misinterpretation of CBC data. Current Interpretive Data was last revised on 2017. Testing performed by: [facility], [facility] 2, [address] [place] [address] Monocyte pct 9.4 % CERNER BJWCH Comment: Interpretive Data Percent cell count reference ranges are not reported, since discordance with absolute values may lead to misinterpretation of CBC data. Current Interpretive Data was last revised on 2017. Testing performed by: [facility], [facility] 2, [address] [place] [address] Eosinophil pct 2.8 % CERNER BJWCH Comment: Interpretive Data Percent cell count reference ranges are not reported, since discordance with absolute values may lead to misinterpretation of CBC data. Current Interpretive Data was last revised on 2017. Testing performed by: [facility], [facility] 2, [address] [place] [address] Basophil pct 0.6 % CERNER BJWCH Comment: Interpretive Data Percent cell count reference ranges are not reported, since discordance with absolute values may lead to misinterpretation of CBC data. Current Interpretive Data was last revised on 2017. Testing performed by: [facility], [facility] 2, [address] [place] [address] Blood 08/28/2025 12:3 5 PM CONCHE OPERATOR 08/28/2025 12:38 PM CONCHE OPERATOR Soraya Mayers MD LAB BLOOD ORDERABLES Final Result [facility] [address] [facility]. Department [place] [address] * CBC with auto differential (08/28/2025 12:35 PM CONCHE OPERATOR) WBC 6.46 3.80 - 9.90 K/cumm Comment:Testing performed by : [place] [address], [address] [place] [address] Hgb 13.2 11.9 - 15.5 g/dL ARN BJWCH Comment:Testing performed by : [place] [address], [place] [address] Hct 40.2 35.6 - 45.5 % RAN HERRERAWCH Comment:Testing performed by : [address] [place] [address] Plt 224 150 - 400 K/cumm RAN HERRERAWCH Comment:Testing performed by : [address] [place] [address] MPV 10.3 9.1 - 12.3 fL RAN HERRERACH Comment:Testing performed by : [address] [place] [address] RBC 4.24 3.90 - 5.20 M/cumm RAN BJWCH Comment:Testing performed by : [place] [address], [address] [place] [address] MCV 94.8 81.3 - 96.4 fL CERTITO BJWCH Comment:Testing performed by : [place] [address], [address] [place] [address] MCH 31.1 27.1 - 33.3 pg CERTITO BJWCH Comment:Testing performed by : [place] [address], [address] [place] [address] MCHC 32.8 32.3 - 35.7 g/dL CERTITO BJWCH Comment:Testing performed by : [facility], [facility] 2, [address] [place] [address] RDW CV 12.9 11.1 - 14.9 % RAN TARANGO Comment:Testing performed by : [facility], [facility] 2, [address] [place] [address] RDW SD 44.5 35.7 - 48.1 fL RAN TARANGO Comment:Testing performed by : [facility], [facility] 2, [address] [place] [address] ANC Prelim 3.44 1.50 - 6.50 K/cumm RAN TARANGO Comment: Interpretive Data The rapid ANC is a preliminary automated count and may vary from the final ANC (Neut Abs) reported in the WBC differential that follows. Current interpretive data was last revised 2024. Testing performed by: [facility], [facility] 2, [address] [place] [address] Blood 08/28/2025 12:3 5 PM CONCHE OPERATOR 08/28/2025 12:38 PM CONCHE OPERATOR Soraya Mayers MD LAB BLOOD ORDERABLES Final Result [facility] [address] [place] [address] * Comprehensive metabolic panel (08/28/2025 12:35 PM CONCHE OPERATOR) Sodium 141 135 - 145 mmol/L Comment:Testing performed by : [facility], [address] [place] [address] Potassium, pl 4.4 3.3 - 4.9 mmol/L RAN TARANGO Comment:Testing performed by : [facility], [address] [place] [address] Chloride 105 97 - 110 mmol/L RAN TARANGO Comment:Testing performed by : [facility], [address], [place] [address] CO2 27 22 - 32 mmol/L CERNER BJWCH Comment:Testing performed by : [facility], [address], [place] [address] Anion gap 9 2 - 15 mmol/L CERNER BJWCH Comment:Testing performed by : [facility], [address], [place] [address] BUN 15 6 - 25 mg/dL CERNER BJWCH Comment:Testing performed by : [facility], [address], [place] [address] Creatinine 0.85 0.60 - 1.10 mg/dL CERNER BJWCH Comment:Testing performed by : [facility], [address], [place] [address] Glucose 84 70 - 199 mg/dL CERNER [...] Care 202; 46: S19-S40. Testing performed by: [facility], [address], [place] [address] Calcium 9.8 8.5 - 10.3 mg/dL CERNER BJWCH Comment:Testing performed by : [facility], [address], [place] [address] Bilirubin, total 0.6 0.1 - 1.2 mg/dL CERNER BJWCH Comment:Testing performed by : [facility], [address], [place] [address] Protein, pl 7.2 6.5 - 8.5 g/dL CERNER BJWCH Comment:Testing performed by : [facility], [address], [place] [address] Albumin 4.2 3.5 - 5.0 g/dL CERNER BJWCH Comment:Testing performed by : [facility], [address], [place] [address] Alk phos 122 40 - 130 Units/L CERNER BJWCH Comment:Testing performed by : [facility], [address], [place] [address] ALT 36 7 - 45 Units/L CERNER BJWCH Comment:Testing performed by : [facility], [address], [place] [address] AST 35 10 - 45 Units/L CERNER BJWCH Comment:Testing performed by : [facility], [address], [place] [address] Blood 08/28/2025 12:3 5 PM CONCHE OPERATOR 08/28/2025 1:00 PM CONCHE OPERATOR Soraya Mayers MD LAB BLOOD ORDERABLES Final Result Performing Organization Address City/[facility]/ZIP Co de Phone Number RAN BJWCH [address] [place] [address] * C3 complement (08/28/2025 12:35 PM CONCHE OPERATOR) Complement C3 146 90 - 180 mg/dL Comment:Testing performed by : [facility], [address] [place] [address]., [address] Blood 08/28/2025 12:3 5 PM CONCHE OPERATOR 08/28/2025 3:25 PM CONCHE OPERATOR Soraya Mayers MD LAB BLOOD ORDERABLES Final Result HARJITNER BJWCH [address] [facility] [place] [address] * CRP (acute phase) (08/28/2025 12:35 PM CONCHE OPERATOR) CRP <3.0 <=10.0 mg/L Comment:Testing performed by : [facility], [address], [place] [address] Blood 08/28/2025 12:3 5 PM CONCHE OPERATOR 08/28/2025 1:00 PM CONCHE OPERATOR Soraya Mayers MD LAB BLOOD ORDERABLES Final Result Performing Organization Address [facility]/ZIP Co de Phone Number RAN HERRERACH [address] [facility] [place] [address] * Erythrocyte sedimentation rate (08/28/2025 12:35 PM CONCHE OPERATOR) Pathologist [facility] Erythrocyte sedimentation rate 24 1 - 30 mm/hr Comment:Testing performed by : [facility], [address] [place] [address] Blood 08/28/2025 12:3 5 PM CONCHE OPERATOR 08/28/2025 1:24 PM CONCHE OPERATOR Soraya Mayers MD LAB BLOOD ORDERABLES Final Result Performing Organization Address [facility] Co de Phone Number RAN HERRERACH [address] [address] [place] [address] * C4 complement (08/28/2025 12:35 PM CONCHE OPERATOR) [facility] Complement C4 20 10 - 40 mg/dL Comment:Testing performed by : [facility], [address] [place] [address], [place]., [address] Blood 08/28/2025 12:3 5 PM CONCHE OPERATOR 08/28/2025 3:25 PM CONCHE OPERATOR Soraya Mayers MD LAB BLOOD ORDERABLES Final Result Performing Organization Address [facility] Co de Phone Number RAN HERRERACH [address] [place] [address] * Creatine kinase (CK), total (08/28/2025 12:35 PM CONCHE OPERATOR) Pathologist [facility] CK 125 30 - 200 Units/L Comment:Testing performed by : [facility], [address] [place] [address] Blood 08/28/2025 12:3 5 PM CONCHE OPERATOR 08/28/2025 1:00 PM CONCHE OPERATOR Soraya Mayers MD LAB BLOOD ORDERABLES Final Result Performing Organization Address [facility]/ZIP Co de Phone Number [facility] [address] [facility]. [place] [address] * Aldolase (08/28/2025 12:35 PM CONCHE OPERATOR) Aldolase 6.4 0.1 - 8.0 Units/L Comment:Testing performed by : [facility], [address] [place]., [address] Blood 08/28/2025 12:3 5 PM CONCHE OPERATOR 08/28/2025 6:16 PM CONCHE OPERATOR Soraya Mayers MD LAB BLOOD ORDERABLES Final Result Performing Organization Address [facility] Co de Phone Number RAN BJWCH [address] [facility]. [place] [address] documented in this encounter Visit Diagnoses Diagnosis 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 documented in this encounter Care Teams Workforce Services Representative Relationship Specialty Start Date End Date Joe Alaniz MD [address] [facility] [address] [place] [address] PCP - General Internal Medicine 09/27/18 Troy Bradford MD [address] [place] [address] Consulting Physician Cardiology 11/10/24 documented as of this encounter
--- NOTE | ~2025-08-29 | MM_ITS ---
EXAMINATION: MM screening sabrina BI w lucy HISTORY: Screening TECHNIQUE: Craniocaudal and mediolateral oblique 3-D tomosynthesis images were obtained and synthetic 2-D images were generated. CAD analysis was submitted and interpreted. COMPARISON: 2023, 2022, and 2021. BREAST PARENCHYMAL COMPOSITION: The breast tissue is heterogeneously dense, which may obscure small masses. FINDINGS: No suspicious masses are seen. There are no suspicious calcifications. No unexplained architectural distortion is seen. There are no skin or nipple abnormalities identified. There is no adenopathy seen on the images submitted. IMPRESSION: No mammographic evidence to suggest malignancy is seen. The patient may return to screening mammography as per ACR guidelines. BI-RADS 1 - Negative. Reviewed, dictated and finalized at location C. SCIENCES DIRECTOR
--- OUTSIDE RECORDS SUMMARY | 2025-08-29 08:43 | XMS_ITS | Encounter Summary ---
Author Organization [facility] Address [address] [place] [address] Phone Care Team Providers Care Gluer And Wedger Name Role Phone Joe Alaniz MD Primary Care Provider Troy Bradford MD Unavailable Encounter Details Date Type Department Care Team (Late st Contact Info) Description 05/10/2023 Orders Only [facility] Scanning, Provider Social History Tobacco Use Types Packs/Day Years Used Date Smoking Tobacco: Former Cigarettes 0.1 37 1 981 - 2018 Passive Smoke Exposure: Never Smokeless Tobacco: Never Alcohol Use Standard Drinks/Week Comments Yes 0 (1 standard drink = 0.6 oz pur e alcohol) [facility] Answer Date Recorded Q1: How often do you have a drink containing alc ohol? 2-4 times a month 10/29/2021 Q2: How many drinks containi ng alcohol do you have on a typical day when you are drinking? 1 or 2 10/29/2021 Q3: How often do you have si x or more drinks on one occasion? Never 10/29/2021 Comments No Sex and Gender Information Value Date Recorded Sex Assigned at Not on file Legal Sex Female 10:59 AM SPOUT WORKER Gender Identity Female 07/30/2021 6:11 AM SPOUT WORKER Sexual Orientation Straight 09/05/2021 9: 28 AM SPOUT WORKER Occupation Industry Job Start Date Job End Date RETIRED Not on file Not on file Not on file documented as of this encounter Plan of Treatment Not on file documented as of this encounter Procedures Procedure Name Priority Date/Time Associated Diagnosis Comments GI - RESULT 05/10/2023 documented in this encounter Results * GI - RESULT (05/10/2023) Anatomical Region Laterality Modality Other us Provider Scanning Final Result documented in this encounter Visit Diagnoses Not on filedocumented in this encounter Care Teams Gluer And Wedger Relationship Specialty Start Date End Date Joe Alaniz MD [address] [facility] 23 [facility] 23 [place] [address] PCP - General Internal Medicine 09/27/18 Troy Bradford MD [address] [facility] [address] [place] [address] Consulting Physician Cardiology 11/10/24 documented as of this encounter
--- OUTSIDE RECORDS SUMMARY | 2025-08-29 08:43 | XMS_ITS | Clinical Summary ---
Author Organization [facility] [place] [address] Care Team Providers Care Foot Gatherer Name Role Phone Joe Alaniz MD Primary Care Provider Troy Bradford MD Unavailable [phone] Allergies Active Allergy Reactions Criticality Noted Date Comments Clindamycin Nausea only Low 10/29/2021 Metronidazole Nausea & Vomiting High 03/19/2022 Medications cholecalcifer ol (VITAMIN D-3) 2,000 unit capsuleIndica tions:Vitamin D Deficiency Take 1 capsule (2,000 Units total) by mouth nightly Active multivit-min/ iron/folic/woody tein (CENTRUM SILVER WOMEN ORAL) Take by mouth Calcium 300 mg and vitamin D 1000 international units Total vitamin D 3000 international units daily Active levocetirizin e (XYZAL) 5 mg tablet Take 1 tablet (5 mg total) by mouth as needed Active Xarelto 20 mg tablet Take 1 tablet (20 mg total) by mouth daily with dinner 90 tablet 3 09/01/19 25 Active hydroxychloro quine (PLAQUENIL) 200 mg tabletIndicat ions:Raynaud' s disease without gangrene Take 2 tablets (400 mg total) by mouth daily 60 tablet 11 12/08/[address] (PROTONIX) 20 mg EC tabletIndicat ions:Treatmen t of Non-Bleeding Gastric Disorder Take 1 tablet (20 mg total) by mouth daily 90 tablet 3 05/07/20 25 026 Active metoprolol XL (TOPROL-XL) 25 mg extended release tablet TAKE 1 TABLET (25 MG TOTAL) BY MOUTH DAILY. 90 tablet 3 07/18/20 25 026 Active atorvastatin (LIPITOR) 20 mg tablet TAKE 1 TABLET BY MOUTH EVERY DAY 90 tablet 3 08/13/20 25 Active atorvastatin (LIPITOR) 20 mg tablet Take 1 tablet (20 mg total) by mouth daily 30 tablet 11 07/21/20 24 025 Discontinued Hospital, Clinic, or Other Facility Administered Medication Ordered Dose Route Frequency Start Date End Date Status perflutren lipid (DEFINITY) 1.5 mL in sodium chloride 0.9% 10 mL syringe 1 - 10 mL IV Once in imaging 07/17/2024 Active Active Problems Problem Noted Date Diagnosed Date Thyroid nodule 06/10/2021 Gastroesophageal reflux disease 11/13/2019 Paroxysmal atrial fibrillation 02/07/2019 SLE (systemic lupus erythematosus) 02/07/2019 Resolved Problems Problem Noted Date Diagnosed Date Resolved Date Open wound 10/28/2021 04/20/2025 Overview (10/28/2021): Added automatically from request for surgery [id number] Type I or II open fracture o f distal end of left fibula and tibia with routine healing 07/23/2021 04/20/2025 Fatigue 11/13/2019 04/20/2025 Primary localized osteoarthr itis of pelvic region and thigh 11/13/2019 04/20/2025 Primary osteoarthritis of right hip 11/08/2018 04/20/2025 Overview (11/08/2018): Added automatically from request for surgery [id number] Rheumatoid arthritis 11/24/2016 025 Encounters Date Type Department Care Team Description 08/28/2025 1:15 PM WASTE REMOVALIST Lab [facility] at [address] [place] [id number] 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 08/28/2025 11:40 AM WASTE REMOVALIST [facility] [address] [facility] Medical Office Building [address] [place] [id number] Soraya Mayers MD 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 (Primary Dx) 06/15/2025 10:00 AM CDT Office Visit [facility] Medicine Cardiology [address] [facility] Office Building [address] [place] [address] Cesia Levine, VICENTA Atypical chest pain (Primary Dx) 06/15/2025 Results Follow-Up [facility] Medicine Cardiology [address] [facility] Office Building [address] [place] [phone] Cesia Levine, VICENTA ECG 12 lead from Last 3 Months Immunizations Immunization Administration Dates Next Due Influenza, Quadrivalent, Jessica l Culture-based MDCK, Antibiotic Free, Intramuscular 06/14/2019 Influenza, Quadrivalent, Jessica l Culture-based MDCK, Preservative Free, Antibiotic Free, Intramuscular 06/11/2020 Influenza, Quadrivalent, Hig h Dose, Preservative Free, Intrr 06/11/2021 Influenza, Quadrivalent, Spl it, Intramuscular 05/14/2021 Influenza, Quadrivalent, Spl it, Preservative Free, Intramuscular 07/13/2018 Influenza, Unspecified 06/13/2018 Tdap 07/23/2021 ZOSTER Recombinant 07/22/2020,04/18/2020, 019 Surgical History Surgery Date Site/Laterality Comments FLUORO GUIDED ASPIRATION OR INJECTION LARGE JOINT RIGHT 11/22/2018 Right COLONOSCOPY Multiple-- Last 08/2017 TOTAL HIP ARTHROPLASTY 01/28/2019 - 02/26/2019 Right INCISION AND DRAINAGE 07/23/2021 Left tibia PERCUTANEOUS PINNING TIBIA FRACTURE NOVEMBER 03 2021 CATARACT EXTRACTION JOINT REPLACEMENT January 2019 Medical History Medical History Date Comments Atrial fibrillation (HCC) Dxd ~2 007-- 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 Treated with Cellcept, methotrexate and Plaquenil. Generalized OA Former smoker Quit 2017 Tibia fracture Covid-19 06/2020 A-fib (HCC) Autoimmune disease Apr 2016 Family History Medical History Relation Name Comments Arthritis Father Osei Browning Heart attack Father Osei Browning Heart disease Father Osei Browning Diabetes type II Maternal Grandfather Prostate cancer Maternal Grandfather Heart failure Maternal Grandmother Osteoporosis Maternal Grandmother Arthritis Mother Velma Browning Broken bones Mother Velma Browning vertabrae Hypertension Mother Velma Browning spinal stenosis Mother Velma Browning Osteoporosis Mother's Sister Rheum arthritis Paternal Grandfather No Known Problems Paternal Grandmother Heart attack Sister Daysi Mcmillan Heart disease Sister Daysi Mcmillan Anesthesia problems Neg Hx Hip fracture Neg Hx Scoliosis Neg Hx Relation Name Status Comments Father Osei Browning (Age 79) Maternal Grandfather Maternal Grandmother (Age 93) Mother Velma Browning Alive Mother's Sister (Age 92) Paternal Grandfather Paternal Grandmother Sister Daysi Mcmillan Social History Tobacco Use Types Packs/Day Years Used Date Smoking Tobacco: Former Cigarettes 0.1 37 1 98 - 2017 Passive Smoke Exposure: Never Smokeless Tobacco: Never Tobacco Cessation:Counseling Given: Not Answered Alcohol Use Standard Drinks/Week Comments Yes 1 (1 standard drink = 0.6 oz pur e alcohol) [facility] Utilities Answer Date Recorded In the past 12 months has e electric, gas, oil, or water company threatened to [...] often do you attend chur ch or quaker services? More than 4 times per year 12/07/2024 Do you belong to any clubs o r organizations such as mandaeism groups, unions, fraternal or athletic groups, or [...] Recorded Patient Health Questionnaire-2 Score 0 12/07/2024 [facility] Occupat ional Health - Occupational Stress [...] on file Legal Sex Female 10:59 AM WASTE REMOVALIST Gender Identity Female 07/30/2021 6:11 AM WASTE REMOVALIST Sexual Orientation Straight 09/05/2021 9: 28 AM WASTE REMOVALIST Occupation Industry Job Start Date Job End Date RETIRED Not on file Not on file Not on file Last Filed Vital Signs Vital Sign Reading Time Taken Comments Blood Pressure 114/68 08/28/2025 11:39 AM WASTE REMOVALIST Pulse 60 08/28/2025 11:39 AM WASTE REMOVALIST Temperature 36.4 C (97.6 F) 08/28/2025 11:39 AM WASTE REMOVALIST Respiratory Rate 16 08/24/2024 9:35 AM WASTE REMOVALIST Oxygen Saturation 91% 08/28/2025 11:39 AM WASTE REMOVALIST Inhaled Oxygen Concentration - - Weight 84.8 kg (187 lb) 08/28/2025 11:39 AM WASTE REMOVALIST Height 167.6 cm (5' 6) 08/28/2025 11:39 AM WASTE REMOVALIST Body Mass Index 30.18 08/28/2025 11:39 AM WASTE REMOVALIST Plan of Treatment Health Maintenance Due Date Last Done Comments Colon Cancer Screening-Colonoscopy 1955 Hepatitis C Screening 1955 Hepatitis B Screening 1974 Covid-19 Vaccine (3 - Pfizer risk series) 12/18/2020 11/20/2020, 10/29/2020 Well Visit 65+ 2021 Fall Risk Assessment 11/04/2022 11/04/2021 Influenza Vaccine (#1) 2025 , 06/03/2021, 05/14/2021, Additional history exists Breast Cancer Screening-Mammogram 07/04/2025 024 Depression Screening 12/07/2025 12/07/2024 Osteoporosis Screening-Bone Density Scan 05/02/2026 05/02/2024, 04/28/2022 DTaP/Tdap/Td Vaccine (2 - Td or Tdap) 07/23/2031 07/23/2021 Zoster Vaccine Completed 07/22/2020, 03/31, 04/03/2019 Pneumococcal vaccine 65+ Completed 04/13/2023, 04/2022 Medical Devices Implanted Type Area Feed Adviser Device Identifier Shelf Expiration Date Model / Serial / Lot [employer] [id number] Procotyl Prime 54mm Shell Acetabular Sterile - Sn/A - [id number] Implanted:Qty: 1 on 02/24/2019 by Roberto Wheeler MD at [facility] Other - see comments Right: Hip [employer] 01/12/2027 [id number] / N/A / [id number] [employer] [id number] Dynasty Lineage 6.5mm 40mm Acetabular Screw Bone Biofoam - Sn/A - [id number] Implanted:Qty: 1 on 02/24/2019 by Roberto Wheeler MD at [facility] Other - see comments Right: Hip [employer] 03/13/2026 [id number] / N/A / [id number] [employer] [id number] Procotyl Prime 36mm Liner Acetabular Sterile Latex Free - Sn/A - [id number] Implanted:Qty: 1 on 02/24/2019 by Roberto Wheeler MD at [facility] Other - see comments Right: Hip [employer] 09/27/2026 [id number] / N/A / [id number] [employer] [id number] Dynasty Lineage 6.5mm 35mm Acetabular Screw Bone Biofoam - Sn/A - [id number] Implanted:Qty: 1 on 02/24/2019 by Roberto Wheeler MD at [facility] Other - see comments Right: Hip [employer] 04/21/2026 [id number] / N/A / [id number] [employer] [id number] Profemur Tl Classic Long Straight Neck Hip 4 Stem Femoral Sterile - Sn/A - [id number] Implanted:Qty: 1 on 02/24/2019 by Roberto Wheeler MD at [facility] Other - see comments Right: Hip [employer] [id number] 12/10/2024 [id number] / N/A / [id number] [employer] [id number] 36mm -3.5mm 08/12 Short Neck Taper Head Femoral Biolox Delta - Sn/A - [id number] Implanted:Qty: 1 on 02/24/2019 by Roberto Wheeler MD at [facility] Other - see comments Right: Hip [employer] 11/25/2026 [id number] / N/A / [id number] Im Nail Screw Implanted:Qty: 1 on 07/23/2021 by Moses Tang MD at [facility] Left: Tibia Synthes I 04.045.030S / / Im Nail Screw Implanted:Qty: 1 on 07/23/2021 by Moses Tang MD at [facility] Left: Tibia Synthes I 04..045.038 S / / Im Nail Screw Implanted:Qty: 1 on 07/23/2021 by Moses Tang MD at [facility] Left: Tibia Synthes I 04.045.034S / / Im Nail Screw Implanted:Qty: 1 on 07/23/2021 by Moses Tang MD at [facility] Left: Tibia Synthes I 04.045.036S / / Synthes 04.043.230s Nail Im Tibial Ti Tn Advanced [id number] - [id number] Implanted:Qty: 1 on 07/23/2021 by Moses Tang MD at [facility] Left: Tibia Synthes I 04.043.230S / / Loking Screw For Im Nail Implanted:Qty: 1 on 07/23/2021 by Moses Tang MD at [facility] Left: Tibia Synthes I 12/27/2030 04.042.042S / / [id number] Im Nail Screw Implanted:Qty: 1 on 07/23/2021 by Moses Tang MD at [facility] Left: Tibia Synthes I 04.045.028S / / Explanted Type Area Feed Adviser Device Identifier Shelf Expiration Date Model / Serial / Lot Im Nail Screw Explanted:Qty: 1 on 07/23/2021 by Moses Tang MD at [facility] Left: Tibia Synthes I 04.045.0 40S / / Procedures Procedure Name Priority Date/Time Associated Diagnosis Comments PROTEIN / CREATININE RATIO, URINE, RANDOM Routine 08/28/2025 12:45 PM WASTE REMOVALIST 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 URINALYSIS AND REFLEX TO MICROSCOPIC AND CULTURE Routine 08/28/2025 12:45 PM WASTE REMOVALIST 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 EGFR Routine 08/28/2025 12:35 PM WASTE REMOVALIST 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 DIFFERENTIAL AUTO Routine 08/28/2025 12:35 PM WASTE REMOVALIST 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 CBC WITH AUTO DIFFERENTIAL Routine 08/28/2025 12:35 PM WASTE REMOVALIST 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 COMPREHENSIVE METABOLIC PANEL Routine 08/28/2025 12:35 PM WASTE REMOVALIST 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 C3 COMPLEMENT Routine 08/28/2025 12:35 PM WASTE REMOVALIST 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 CRP (ACUTE PHASE) Routine 08/28/2025 12:35 PM WASTE REMOVALIST 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 ERYTHROCYTE SEDIMENTATION RATE Routine 08/28/2025 12:35 PM WASTE REMOVALIST 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 C4 COMPLEMENT Routine 08/28/2025 12:35 PM WASTE REMOVALIST 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 CREATINE KINASE (CK), TOTAL Routine 08/28/2025 12:35 PM WASTE REMOVALIST 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 ALDOLASE Routine 08/28/2025 12:35 PM WASTE REMOVALIST 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 ECG 12-LEAD Routine 06/15/2025 10:08 AM CDT Atypical chest pain DEXA TBS AXIAL SKELETON BONE DENSITY 1 OR MORE SITES Schedule Routine, Read Routine (OP Routine) 05/02/2024 2:48 PM CDT Osteopenia of neck of left femur from Last 3 Months or Most Recently Relevant to Health Maintenance Results * Urinalysis reflex to microscopic and culture Urine (08/28/2025 12:45 PM WASTE REMOVALIST) Color, ur Straw Yellow Comment:Testing performed by : [facility], [address] [place] [address] Clarity, ur Clear Clear [facility] Comment:Testing performed by : [facility], [address], [place] [address] Specific gravity, ur 1.011 1.003 - 1.030 [facility] Comment:Testing performed by : [facility], [address], [place] [address] pH, urine 6.5 [facility] Comment: Interpretive Data U rine pH is affected by diet, medications, systemic acid-base disturbances, and renal tubular function. pH may affect urinary stone formation. For example, urine pH below 6.0 may help reduce the tendency for calcium phosphate stones and pH greater than 6.0 may reduce the tendency for uric acid stone formation. Source: [facility] [employer] Current Interpretive Data was last revised on 2017 Testing performed by: [facility], [address], [place] [address] Protein, ur ql Negative Negative [facility] Comment:Testing performed by : [facility], [address], [place] [address] Glucose, ur ql Negative Negative [facility] Comment:Testing performed by : [facility], [address], [place] [address] Ketones, ur Negative Negative [facility] Comment:Testing performed by : [facility], [address], [place] [address] Bilirubin, ur Negative Negative [facility] Comment:Testing performed by : [facility], [address], [place] [address] Blood, ur Negative Negative [facility] Comment:Testing performed by : [facility], [address], [place] [address] Urobilinogen, ur <2.0 <2.0 mg/dL [facility] Comment:Testing performed by : [facility], [address], [place] [address] Nitrite, ur Negative Negative [facility] Comment:Testing performed by : [facility], [address], [place] [address] Leukocyte esterase, ur Negative Negative [facility] Comment:Testing performed by : [facility], [address] [place] [address] UA reflex comment Reflex conditions for microscopic UA and culture not met. RAN [facility] Comment:Testing performed by : [facility], [address] [place] [address] Urine 08/28/2025 12:4 5 PM WASTE REMOVALIST 08/28/2025 1:24 PM WASTE REMOVALIST Soraya Mayers MD LAB MICROBIOLOGY - GENERAL ORDERABLES Final Result Performing Organization Address [facility] Co de Phone Number RAN [facility] [phone] [address] [facility] [place] [address] * Protein / creatinine ratio, urine, random (08/28/2025 12:45 PM WASTE REMOVALIST) Protein, ur, quant <6.0 mg/dL Comment: Interpretive Data No reference range established. Current interpretive data was last revised 2019. Testing performed by: [facility], [address] [place] [address] Creatinine Ur 40.1 mg/dL RAN [facility] Comment: Interpretive Data No reference range established. Current interpretive data was last revised 2019. Testing performed by: [facility], [address] [place] [address] Protein/creatinin e ratio <149.6 0.0 - 180.0 mg/g CR [facility]AN [facility] Comment:Testing performed by : [facility], [address] [place] [address] Urine 08/28/2025 12:4 5 PM WASTE REMOVALIST 08/28/2025 1:24 PM WASTE REMOVALIST Soraya Mayers MD LAB URINE ORDERABLES Final Result Performing Organization Address City/[facility] Co de Phone Number [facility] [phone] [address] [facility] [place] [address] * eGFR (08/28/2025 12:35 PM WASTE REMOVALIST) eGFR 74 >=60 mL/min/1. 73 m2 Comment: [...] of Race in Diagnosing Kidney Disease, JASN 2020). The CKD-EPI equation should not be used for patients with unstable renal function and has not been validated in children and those over 70. Current interpretive data was last reviewed 2021. Testing performed by: [facility], [address] [place] [address] Blood 08/28/2025 12:3 5 PM WASTE REMOVALIST 08/28/2025 1:00 PM WASTE REMOVALIST us Soraya Mayers MD LAB BLOOD ORDERABLES Final Result [facility] [address] [address] Department of Laboratories [place], [place] [id number] * Differential, auto (08/28/2025 12:35 PM WASTE REMOVALIST) Pathologist [facility] Neutrophil abs 3.44 1.50 - 6.50 K/cumm Comment:Testing performed by : [facility], [address], [address] [place] [address] Imm gran abs 0.01 0.00 - 0.10 K/cumm RAN [facility] Comment:Testing performed by : [facility], [address], [address] [place] [address] Lymphocyte abs 2.18 0.80 - 3.30 K/cumm [facility] Comment:Testing performed by : [facility], [facility], [address] [place] [address] Monocyte abs 0.61 0.20 - 0.80 K/cumm [facility] Comment:Testing performed by : [facility], [facility], [address] [place] [address] Eosinophil abs 0.18 0.00 - 0.50 K/cumm C[facility] Comment:Testing performed by : [facility], [facility], [address] [place] [address] Basophil abs 0.04 0.00 - 0.10 K/cumm [facility] Comment:Testing performed by : [facility], [facility], [address] [place] [address] Neutrophil pct 53.3 % [facility] Comment: Interpretive Data Percent cell count reference ranges are not reported, since discordance with absolute values may lead to misinterpretation of CBC data. Current Interpretive Data was last revised on 2017. Testing performed by: [facility], [facility], [address] [place] [address] Imm gran pct 0.2 % [facility] Comment: Interpretive Data Percent cell count reference ranges are not reported, since discordance with absolute values may lead to misinterpretation of CBC data. Current Interpretive Data was last revised on 2017. Testing performed by: [facility], [facility], [address], [place] [address] Lymphocyte pct 33.7 % [facility] Comment: Interpretive Data Percent cell count reference ranges are not reported, since discordance with absolute values may lead to misinterpretation of CBC data. Current Interpretive Data was last revised on 2017. Testing performed by: [facility], [facility], [address] [place] [address] Monocyte pct 9.4 % [facility] Comment: Interpretive Data Percent cell count reference ranges are not reported, since discordance with absolute values may lead to misinterpretation of CBC data. Current Interpretive Data was last revised on 2017. Testing performed by: [facility], [facility], [address] [place] [address] Eosinophil pct 2.8 % [facility] Comment: Interpretive Data Percent cell count reference ranges are not reported, since discordance with absolute values may lead to misinterpretation of CBC data. Current Interpretive Data was last revised on 2017. Testing performed by: [facility], [facility], [address] [place] [address] Basophil pct 0.6 % [facility] Comment: Interpretive Data Percent cell count reference ranges are not reported, since discordance with absolute values may lead to misinterpretation of CBC data. Current Interpretive Data was last revised on 2017. Testing performed by: [facility], [facility], [address] [place] [address] Blood 08/28/2025 12:3 5 PM WASTE REMOVALIST 08/28/2025 12:38 PM WASTE REMOVALIST us Soraya Mayers MD LAB BLOOD ORDERABLES Final Result [facility] [address] [facility] [address] * C4 complement (08/28/2025 12:35 PM WASTE REMOVALIST) Complement C4 20 10 - 40 mg/dL Comment:Testing performed by : [facility], [address] [place] [address], [place]., [address] Blood 08/28/2025 12:3 5 PM WASTE REMOVALIST 08/28/2025 3:25 PM WASTE REMOVALIST Soraya Mayers MD LAB BLOOD ORDERABLES Final Result RAN [facility] [address] [address]. [facility] [place] [address] * CBC with auto differential (08/28/2025 12:35 PM WASTE REMOVALIST) WBC 6.46 3.80 - 9.90 K/cumm Comment:Testing performed by : [place] [address], [address] [place] [address] Hgb 13.2 11.9 - 15.5 g/dL [facility] Comment:Testing performed by : [place] [address], [address] [place] [address] Hct 40.2 35.6 - 45.5 % [facility] Comment:Testing performed by : [place] [address], [address] [place] [address] Plt 224 150 - 400 K/cumm C[facility] Comment:Testing performed by : [place] [address], [address] [place] [address] MPV 10.3 9.1 - 12.3 fL [facility] Comment:Testing performed by : [address], [place] [address] RBC 4.24 3.90 - 5.20 M/cumm [facility] Comment:Testing performed by : [place] [address], [address], [place] [address] MCV 94.8 81.3 - 96.4 fL [facility] Comment:Testing performed by : [address] [place] [address] MCH 31.1 27.1 - 33.3 pg [facility] Comment:Testing performed by : [place] [address], [address], [place] [address] MCHC 32.8 32.3 - 35.7 g/dL [facility] Comment:Testing performed by : [place] [address], [address] [place] [address] RDW CV 12.9 11.1 - 14.9 % [facility] Comment:Testing performed by : [place] [address], [address] [place] [address] RDW SD 44.5 35.7 - 48.1 fL RAN [facility] Comment:Testing performed by : [facility], [facility], [address] [place] [address] ANC Prelim 3.44 1.50 - 6.50 K/cumm RAN [facility] Comment: Interpretive Data The rapid ANC is a preliminary automated count and may vary from the final ANC (Neut Abs) reported in the WBC differential that follows. Current interpretive data was last revised 2024. Testing performed by: [facility], [facility], [address] [place] [address] Blood 08/28/2025 12:3 5 PM WASTE REMOVALIST 08/28/2025 12:38 PM WASTE REMOVALIST Soraya Mayers MD LAB BLOOD ORDERABLES Final Result Performing Organization Address City/[facility]/ZIP Co de Phone Number [facility] [address] [facility]. [employer] [place], [place] [address] * Aldolase (08/28/2025 12:35 PM WASTE REMOVALIST) [facility] Aldolase 6.4 0.1 - 8.0 Units/L Comment:Testing performed by : [facility], [address] [facility], [place]., [address] Blood 08/28/2025 12:3 5 PM WASTE REMOVALIST 08/28/2025 6:16 PM WASTE REMOVALIST Soraya Mayers MD LAB BLOOD ORDERABLES Final Result Performing Organization Address City/[facility]/ZIP Co de Phone Number [facility] [address] [facility]. [facility] [employer] [place] [address] * Erythrocyte sedimentation rate (08/28/2025 12:35 PM WASTE REMOVALIST) Pathologist [facility] Erythrocyte sedimentation rate 24 1 - 30 mm/hr Comment:Testing performed by : [facility], [address] [place] [address] Blood 08/28/2025 12:3 5 PM WASTE REMOVALIST 08/28/2025 1:24 PM WASTE REMOVALIST Soraya Mayers MD LAB BLOOD ORDERABLES Final Result Performing Organization Address City/[facility]/ZIP Co de Phone Number RAN HERRERACH [address] [address] [facility] [place] [address] * C3 complement (08/28/2025 12:35 PM WASTE REMOVALIST) Pathologist [facility] Complement C3 146 90 - 180 mg/dL Comment:Testing performed by : [facility], [facility], [place]., [address] Blood 08/28/2025 12:3 5 PM WASTE REMOVALIST 08/28/2025 3:25 PM WASTE REMOVALIST Soraya Mayers MD LAB BLOOD ORDERABLES Final Result Performing Organization Address [facility] Co de Phone Number RAN BJW[facility] [address] [address] [place] [address] * CRP (acute phase) (08/28/2025 12:35 PM WASTE REMOVALIST) [facility] CRP <3.0 <=10.0 mg/L Comment:Testing performed by : [facility], [address] [place] [address] Blood 08/28/2025 12:3 5 PM WASTE REMOVALIST 08/28/2025 1:00 PM WASTE REMOVALIST Soraya Mayers MD LAB BLOOD ORDERABLES Final Result Performing Organization Address City/[facility] Co de Phone Number RAN [facility] [address] [place] [address] * Creatine kinase (CK), total (08/28/2025 12:35 PM WASTE REMOVALIST) [facility] CK 125 30 - 200 Units/L Comment:Testing performed by : [facility], [address], [place] [address] Blood 08/28/2025 12:3 5 PM WASTE REMOVALIST 08/28/2025 1:00 PM WASTE REMOVALIST us Soraya Mayers MD LAB BLOOD ORDERABLES Final Result [facility] [address] Department [place] [address] * Comprehensive metabolic panel (08/28/2025 12:35 PM WASTE REMOVALIST) Sodium 141 135 - 145 mmol/L Comment:Testing performed by : [facility], [address] [place] [address] Potassium, pl 4.4 3.3 - 4.9 mmol/L CERNER BJW Comment:Testing performed by : [facility], [address] [place] [address] Chloride 105 97 - 110 mmol/L CERNER BJWCH Comment:Testing performed by : [facility], [address], [place] [address] CO2 27 22 - 32 mmol/L CERNER BJWCH Comment:Testing performed by : [facility], [address], [place] [address] Anion gap 9 2 - 15 mmol/L CERNER BJWCH Comment:Testing performed by : [facility], [address] [place] [address] BUN 15 6 - 25 mg/dL CERNER BJWCH Comment:Testing performed by : [facility], [address], [place] [address] Creatinine 0.85 0.60 - 1.10 mg/dL CERNER BJWCH Comment:Testing performed by : [facility], [address], [place] [address] Glucose 84 70 - 199 mg/dL CERNER [...] Care 202; 46: S19-S40. Testing performed by: [facility], [address], [place] [address] Calcium 9.8 8.5 - 10.3 mg/dL CERNER BJWCH Comment:Testing performed by : [facility], [address], [place] [address] Bilirubin, total 0.6 0.1 - 1.2 mg/dL CERNER BJWCH Comment:Testing performed by : [facility], [address], [place] [address] Protein, pl 7.2 6.5 - 8.5 g/dL CERNER BJWCH Comment:Testing performed by : [facility], [address], [place] [address] Albumin 4.2 3.5 - 5.0 g/dL CERNER BJWCH Comment:Testing performed by : [facility], [address], [place] [address] Alk phos 122 40 - 130 Units/L CERNER BJWCH Comment:Testing performed by : [facility], [address], [place] [address] ALT 36 7 - 45 Units/L CERNER BJWCH Comment:Testing performed by : [facility], [address], [place] [address] AST 35 10 - 45 Units/L CERNER BJWCH Comment:Testing performed by : [facility], [address], [place] [address] Blood 08/28/2025 12:3 5 PM WASTE REMOVALIST 08/28/2025 1:00 PM WASTE REMOVALIST us Soraya Mayers MD LAB BLOOD ORDERABLES Final Result [facility] [address] Department [place] [address] * ECG 12 lead (06/15/2025 10:08 AM CDT) us Cesia Levine AWNING FINISHER ECG ORDERABLES Edited R esult - Final * Dexa TBS Axial Skeleton Bone Density 1 or more sites (05/02/2024 2:48 PM CDT) Anatomical Region Laterality Modality Wrist, Body N/A Radiographic Alyssa ging Narrative 05/03/2024 8:54 AM CDT Patient Name: Ana Avelar Date of : 1955 Date of scan: 05/02/2024 Bone mineral density was performed on a [employer] Discovery Densitometer. Based on machine cross-calibration and precision studies the least significant changes of this densitometer is 0.024 g/cm2 at the spine, 0.020 g/cm2 at the total proximal femur, and 0.014g/cm2 at the forearm. HISTORY: This is a 69 y.o. postmenopausal female with a history of lupus and vitamin D deficiency. She reports that she quit smoking about 6 years ago. Her smoking use included cigarettes. She started smoking about 43 years ago. She has a 1.9 pack-year smoking history. She has never been exposed to tobacco smoke. She has never used smokeless tobacco. Currently on treatment with calcium and vitamin D. INDICATIONS: Menopause status and vitamin D deficiency. FINDINGS: BONE MINERAL DENSITY OF THE LUMBAR SPINE Bone Mineral Density (BMD) of the lumbar spine was measured from L1-L4 and the average density was calculated to be 1.087 gm/cm2. This corresponds to a T-score (standard deviations from the mean of young adults) of 0.4. When compared to the previous study of 04/28/2022 there has been a -0.023 gm/cm (-2.1%) decrease in bone density that is considered significant. BONE MINERAL DENSITY OF THE PROXIMAL FEMUR Bone Mineral Density (BMD) of the left hip total was found to be 0.890 gm/cm2. This corresponds to a T-score standard deviations from the mean of young adults of -0.4. Femoral neck is 0.710 gm/cm2 with a T-score (standard deviations from the mean of young adults) of -1.3. When compared to the previous study of 04/28/2022 there has been a -0.023 gm/cm (-2.6%) decrease in bone density that is considered significant. SUMMARY: Bone mineral density shows evidence of low bone mass at the proximal femur and moderately increased fracture risk (Osteopenia). There has been a significant decrease in bone density since previous measurement. The lumbar spine Trabecular Bone Score is 1.334 which suggests normal bone microarchitecture, compared to the general population. Final decisions regarding diagnostic or therapeutic recommendations should include BMD, TBS, additional clinical risk factors as well the clinical context of the patient. Please see attached TBS results for further details. ADDITIONAL COMMENTS: Postmenopausal Women and Men Over 50: Diagnostic criteria: Osteoporosis: BMD at or below -2.5 T-score; Osteopenia (low bone mass): BMD between -1.0 and -2.5 T-score. If the patient has a history of a fragility fracture, a fracture that occurred with trauma equivalent to a fall from a standing position or less, then the diagnosis is osteoporosis regardless of bone density. The history and data sections of the bone mineral density scan were prepared by Crissy Osei (R)(CBDT)who is accredited by the International Society of Clinical Densitometry. The overall patient assessment and scan interpretation were performed by Leanne Vanegas M.D.who is certified by the International Society of Clinical Densitometry. [id number] Guerita Vanegas MD IM DXA PROCEDURES Final Resu lt from Last 3 Months or Most Recently Relevant to Health Maintenance Insurance MEDIC[facility] MEDICARE MEDICARE [facility] MEDICARE [facility] FEDERAL MEDICARE [facility] FEDERAL Advance Directives For more information, please contact: [phone] * Full Code (Latest Code Status on File) Date Activated Date Inactivated Comments 11/03/2021 9:37 AM 11/04/2021 5:28 PM * Full Code Date Activated Date Inactivated Comments 07/23/2021 4:49 PM 07/26/2021 9:15 PM * Full Code Date Activated Date Inactivated Comments 07/23/2021 4:49 PM 07/23/2021 4:49 PM * Full Code Date Activated Date Inactivated Comments 02/24/2019 12:13 PM 02/25/2019 2:49 PM Care Teams Foot Gatherer Relationship Specialty Start Date End Date Joe Alaniz MD [address] [facility] [address] [place] [address] PCP - General Internal Medicine 09/27/18 Troy Bradford MD [address] [place] [address] Consulting Physician Cardiology 11/10/24
--- OUTSIDE RECORDS SUMMARY | 2025-08-29 08:43 | XMS_ITS | Encounter Summary ---
Author Organization [facility] Healthcare Address [address] [place] [address] Care Team Providers Care Solar Sales Representative And Assessor Name Role Phone Joe Alaniz MD Primary Care Provider Troy Bradford MD Unavailable Encounter Details Date Type Department Care Team (Late st Contact Info) Description 02/27/2019 Documentation [facility] Case Management [address] [place] [address] Aleshia Viramontes RN Social History Tobacco Use Types Packs/Day Years Used Date Smoking Tobacco: Former Cigarettes 0.3 37 1 - 2017 Smokeless Tobacco: Never Alcohol Use Standard Drinks/Week Comments Yes 0 (1 standard drink = 0.6 oz pur e alcohol) RARE AUDIT-C Answer Date Recorded Frequency of Alcohol Consumption Never 01/25/2019 Average Number of Drinks 1 or 2 019 Frequency of Binge Drinking Never 12/29 Comments No Sex and Gender Information Value Date Recorded Sex Assigned at Not on file Legal Sex Female 10:59 AM GUARD SUPERVISOR Gender Identity Female 07/30/2021 6:11 AM GUARD SUPERVISOR Sexual Orientation Straight 09/05/2021 9: 28 AM GUARD SUPERVISOR Occupation Industry Job Start Date Job End Date RETIRED Not on file Not on file Not on file documented as of this encounter Plan of Treatment Not on file documented as of this encounter Visit Diagnoses Not on filedocumented in this encounter Care Teams Solar Sales Representative And Assessor Relationship Specialty Start Date End Date Joe Alaniz MD [address] [place] [address] PCP - General Internal Medicine 09/27/18 Troy Bradford MD [address] [facility] [address] [place] [address] Consulting Physician Cardiology 11/10/24 documented as of this encounter
--- OUTSIDE RECORDS SUMMARY | 2025-08-29 08:43 | XMS_ITS | Encounter Summary ---
Author Organization [facility] Healthcare Address [address] [place] [address] Care Team Providers Care Supervisor Train Operations Name Role Phone Joe Alaniz MD Primary Care Provider Troy Bradford MD Unavailable [phone] Encounter Details Date Type Department Care Team (Late st Contact Info) Description 07/28/2021 Treatment [facility] PATHOLOGY [address] [address] Kitty Menezes, DO [address] [facility] [id number] [place] [address] Social History Tobacco Use Types Packs/Day Years Used Date Smoking Tobacco: Former Cigarettes 0.3 37 1 1 - 2017 Smokeless Tobacco: Never Alcohol Use Standard Drinks/Week Comments Yes 0 (1 standard drink = 0.6 oz pur e alcohol) RARE AUDIT-C Answer Date Recorded Q1: How often do you have a drink containing alc ohol? 2-4 times a month 07/23/2021 Q2: How many drinks containi ng alcohol do you have on a typical day when you are drinking? 1 or 2 07/23/2021 Q3: How often do you have si x or more drinks on one occasion? Never 07/23/2021 Comments No Sex and Gender Information Value Date Recorded Sex Assigned at Not on file Legal Sex Female 10:59 AM HVAC OPERATIONS TECHNICIAN Gender Identity Female 07/30/2021 6:11 AM HVAC OPERATIONS TECHNICIAN Sexual Orientation Straight 09/05/2021 9: 28 AM HVAC OPERATIONS TECHNICIAN Occupation Industry Job Start Date Job End Date RETIRED Not on file Not on file Not on file documented as of this encounter Plan of Treatment Not on file documented as of this encounter Visit Diagnoses Not on filedocumented in this encounter Care Teams Supervisor Train Operations Relationship Specialty Start Date End Date Joe Alaniz MD [address] [facility] [address] [place] [address] PCP - General Internal Medicine 09/27/18 Troy Bradford MD [address] [place] [address] Consulting Physician Cardiology 11/10/24 documented as of this encounter
--- OUTSIDE RECORDS SUMMARY | 2025-08-29 08:43 | XMS_ITS | Clinical Summary ---
Author Organization [facility] Care Team Providers Care Snipper Name Role Phone Unavailable Primary Care Provider Unavailabl e Social History Tobacco Use Types Packs/Day Years Used Date Smoking Tobacco: Never Assessed Comments Unknown Sex and Gender Information Value Date Recorded Sex Assigned at Not on file Legal Sex Female 2:02 PM HOSPITAL INSURANCE CLERK Gender Identity Not on file Sexual Orientation Not on file Plan of Treatment Health Maintenance Due Date Last Done Comments Hepatitis C Virus (HCV) Screening 1955 TdaP Immunization 1955 Cologuard 2001 Colonoscopy 2001 Colorectal Cancer Screening 2001 Immunochemical Fecal Occult Blood 2001 Pneumococcal Immunization (5 0+ years) (1 of 1 - PCV) 2006 Influenza Immunization (#1) 2025 06/11/2020 SARS-COV-2 Immunization (3 - 2024- season) 2025 11/20/2020, 10/29/2020 Respiratory Syncytial Virus (RSV) Immunization (Adult) (1 - 1-dose 75+ series) 2031 Zoster Immunization Completed 07/22/2020, 04/18/2020 Hepatitis B Immunization Aged Out No longer eligible based on patient's age to complete this topic Human Papillomavirus (HPV) Immunization Aged Out No longer eligible b ased on patient's age to complete this topic Meningococcal Immunization (ACWY) Aged Out No longer eligible b ased on patient's age to complete this topic Rotavirus Immunization Aged Out No lo nger eligible based on patient's age to complete this topic
== END 2025-08-29 08:36 | disposition home or self-care (01) ==
LOC: ANHFOHIMG 08:37
PROVIDERS: PCP Internal Medicine; Visit Provider Nurse Practitioner
DX: Z12.31 Encounter for screening mammogram for malignant neoplasm of breast (principal)
CPT/HCPCS: 77063; 77067